=== PATIENT | female | born 1980 | race Caucasian/White ===

== ENCOUNTER → 2016-09-23 | Outpatient (CLI) | payer MEDICARE ==
[2016-09-23 09:11] LABS: Basophils % (A) 0 %; CH 28.1; CHCM 32.1; Eosinophils # (A) 0.1 k/uL (0-0.7); Eosinophils % (A) 3 %; HCT 38.5 % (34.0-46.0); HDW 2.59; HGB 12.5 gm/dL (11.4-16.0); Hypochromasia Slight; Luc # (Auto) 0.17; Luc % (Auto) 4; Lymphocytes % (A) 22 %; MCH 28.4 pg (25.0-35.0); MCHC 32.3 g/dL (31.0-37.0); MCV 87.8 fL (80.0-100.0); Mean Platelet Volume 7.8; Monocytes # (A) 0.3 k/uL (0-1.0); Monocytes % (A) 7 %; Neutrophils # (A) 2.8 k/uL (1.3-7.7); Neutrophils % (A) 65 %; RBC 4.39 m/uL (3.80-5.40); RDW 14.7 % (11.5-15.5); WBC 4.4 k/uL (3.8-10.6); WBC (Perox) 4.72
[2016-09-23 09:18] LABS: Appearance,Urine Cloudy (Clear); Bacteria,Urine Rare /hpf; Bilirubin,Urine Negative (Negative); Glucose,Urine (UA) Negative (Negative); Ketones,Urine Negative (Negative); Leukocyte Esterase,Urine Moderate (Negative); Mucus,Urine Rare /hpf; Nitrite,Urine Negative (Negative); PH, Urine 5.5 (5.0-8.0); Particle Count 6669; Protein,Urine Negative (Negative); Specific Gravity,Urine 1.015 (1.001-1.035); Squamous Epithelial Cell,Urine 15 /hpf (0-4); UA Billing (MACRO vs. MICRO) MICRO; Urobilinogen,Urine <2.0 mg/dL (<2.0); WBC,Urine 2 /hpf (0-5)
[2016-09-23 10:13] LABS: ALT 29 U/L (9-52); AST 22 U/L (14-36); Alkaline Phosphatase 48 U/L (38-126); Anion Gap 9 mmol/L; Blood Urea Nitrogen 10 mg/dL (7-17); Calcium 8.5 mg/dL (8.4-10.2); Carbon Dioxide 25 mmol/L (22-30); Chloride 108 mmol/L (98-107); Cholesterol 154 mg/dL (<200); Glucose 95 mg/dL (74-99); HDL Cholesterol 48 mg/dL (40-60); Iron 41 ug/dL (37-170); Magnesium 1.7 mg/dL (1.6-2.3); Non-African American GFR(MDRD) >60 (>60 ml/min/1.73 sqM); Phosphorous 3.5 mg/dL (2.5-4.5); Potassium 4.2 mmol/L (3.5-5.1); Sodium 142 mmol/L (137-145); Total Bilirubin 0.4 mg/dL (0.2-1.3); Total Protein 6.6 g/dL (6.3-8.2); Triglycerides 99 mg/dL (<150); Uric Acid 5.7 mg/dL (3.7-7.4)
[2016-09-23 10:25] LABS: % Iron Saturation 11.9 % (20-50); Total Iron Binding Capacity 345 ug/dL (265-497)
== END | disposition home or self-care (01) ==
LOC: LABWHC1 08:10
PROVIDERS: ATTEND Internal Medicine Nephrology
DX: Z01.419 Encounter for gynecological examination (general) (routine) without abnormal findings (principal); D50.9 Iron deficiency anemia, unspecified; I10 Essential (primary) hypertension; D64.9 Anemia, unspecified; N25.81 Secondary hyperparathyroidism of renal origin; E55.9 Vitamin D deficiency, unspecified; M10.9 Gout, unspecified; N39.0 Urinary tract infection, site not specified; E89.0 Postprocedural hypothyroidism; Z13.220 Encounter for screening for lipoid disorders
CPT/HCPCS: 36415; 80053; 80061; 81001; 82306; 82728; 83540; 83550; 83735; 83970; 84100; 84439; 84443; 84550; 85025

== ENCOUNTER 2016-10-08 09:31 | Emergency (ER) | payer MEDICARE ==
[2016-10-08] MEDS ORDERED: METOCLOPRAMIDE 5 MG/ML 2 ML VIAL IVP STA (10:43)
[2016-10-08] MEDS ORDERED: diphenhydrAMINE 50 MG/ML 1 ML VIAL IVP STA (10:43)
[2016-10-08] MEDS ORDERED: SODIUM CHLORIDE 0.9% 1,000 ML IV ONE (10:43)
[2016-10-08] MEDS ORDERED: KETOROLAC 30 MG/ML 1 ML VIAL IVP STA (10:43)
[2016-10-08 11:39] LABS: Basophils % (A) 0 %; CHCM 32.8; Eosinophils # (A) 0.2 k/uL (0-0.7); Eosinophils % (A) 4 %; HDW 2.83; HGB 12.6 gm/dL (11.4-16.0); Luc # (Auto) 0.16; Luc % (Auto) 3; Lymphocytes # (A) 1.2 k/uL (1.0-4.8); Lymphocytes % (A) 22 %; MCH 28.5 pg (25.0-35.0); MCHC 33.1 g/dL (31.0-37.0); Mean Platelet Volume 7.8; Monocytes # (A) 0.3 k/uL (0-1.0); Monocytes % (A) 6 %; Neutrophils # (A) 3.6 k/uL (1.3-7.7); Neutrophils % (A) 66 %; RBC 4.41 m/uL (3.80-5.40); RDW 14.5 % (11.5-15.5); WBC 5.5 k/uL (3.8-10.6); WBC (Perox) 5.49
[2016-10-08 11:49] LABS: Anion Gap 10 mmol/L; Blood Urea Nitrogen 4 mg/dL (7-17); Carbon Dioxide 26 mmol/L (22-30); Chloride 105 mmol/L (98-107); Glucose 85 mg/dL (74-99); Non-African American GFR(MDRD) >60 (>60 ml/min/1.73 sqM); Potassium 3.7 mmol/L (3.5-5.1); Sodium 141 mmol/L (137-145)
--- NOTE | 2016-10-08 11:57 | CT ---
EXAMINATION TYPE: CT brain wo con DATE OF EXAM: 10/08/2016 11:47 AM COMPARISON: NONE HISTORY: 36-year-old female complains of intractable headache. TECHNIQUE: Examination was done in axial plane without intravenous contrast. Coronal and sagittal r econstructions performed. CT DLP: 744 mGycm Automated exposure control for dose reduction was used. FINDINGS: Postsurgical changes with resection along the left mastoid process with a left-sided cochlear implant there are prominent streak and beam hardening artifact from the electrical device along the left pos terior calvarium limiting evaluation. Within this limitation, there is no evidence of acute intracranial hemorrhage, acute ischemic piper es, mass, mass-effect, or extra-axial fluid collection. There is no effacement of cerebral sulci or basal subarachnoid cisterns. There is no hydrocephalus. There is no midline shift. Davis-white yarely er distinction is preserved. Empty sella incidentally noted. Patient's gaze is slightly divergent. The right mastoid air cells are well pneumatized. Prior FESS. IMPRESSION: 1. Prominent artifacts from the patient's cochlear implant on the left side. No acute intracranial ab normality seen allowing for limitations from this metal artifact. 2. Empty sella incidentally noted. 3. Slightly divergent gaze suggests underlying strabismus.
--- NOTE | 2016-10-08 12:16 | ED ---
General Adult HPI - General Chief complaint: Headache Stated complaint: MIGRAINE Source: patient Mode of arrival: ambulatory Limitations: no limitations - History of Present Illness Initial comments: 36-year-old female with a past medical history of migraines presented for evaluation of headache for the last 2 weeks of gradual onset that has progressively worsened. She saw Dr. Chen her primary care physician and was prescribed an antibiotic for sinus infection. She states her symptoms did not improve at all and she went to [facility] yesterday and was given a shot of Toradol without any relief. She says she takes Maxalt as needed for her migraines but has had no improvement with that. She states that her headache is located on the right side of her her head. It is similar to previous headaches but worse. She denies any change in vision, ataxia, lightheadedness/ dizziness, nausea, vomiting, fevers, chills, neck rigidity. - Related Data Home Medications Medication Instructions Recorded Confirmed Amoxicillin/Potassium Clav 1 tab PO Q12HR 10/08/16 10/08/16 [Augmentin 875-125 Tablet] LORazepam [Ativan] 1 mg PO DAILY 10/08/16 10/08/16 Levothyroxine Sodium [Synthroid] 50 mcg PO DAILY 10/08/16 10/08/16 Lisinopril [Zestril] 5 mg PO DAILY 10/08/16 10/08/16 QUEtiapine FUMARATE [SEROquel XR] 50 mg PO HS 10/08/16 10/08/16 Rizatriptan Benzoate [Maxalt] 10 mg PO DAILY 10/08/16 10/08/16 lamoTRIgine [LaMICtal] 200 mg PO DAILY 10/08/16 10/08/16 Previous Rx's Medication Instructions Recorded Ibuprofen [Motrin] 800 mg PO Q8HR PRN #20 tab 10/08/16 Allergies Allergy/AdvReac Type Severity Reaction Status Date / Time amoxicillin Allergy Nausea Verified 10/08/16 10:12 Review of Systems ROS Statement: Those systems with pertinent positive or pertinent negative responses have been documented in the HPI. ROS Other: All systems not noted in ROS Statement are negative. Constitutional: Denies: fever, chills, weakness, weight change Eyes: Denies: eye pain, eye discharge, vision change ENT: Denies: ear pain, throat pain, hearing loss, epistaxis Respiratory: Denies: cough, dyspnea, wheezes, hemoptysis Cardiovascular: Denies: chest pain, palpitations, dyspnea on exertion, orthopnea Gastrointestinal: Denies: abdominal pain, nausea, vomiting, constipation, hematemesis Genitourinary: Denies: urgency, dysuria Musculoskeletal: Denies: back pain, arthralgia, myalgia Skin: Denies: rash, lesions, change in color, change in hair/nails Neurological: Reports: headache. Denies: weakness, numbness, paresthesias, confusion Psychiatric: Denies: anxiety, depression Hematological/Lymphatic: Denies: easy bleeding, easy bruising Past Medical History Past Medical History: Thyroid Disorder Additional Past Medical History / Comment(s): heart murmur, guajardo syndrome, kidney problems, hearing impaired, OCD History of Any Multi-Drug Resistant Organisms: None Reported Past Surgical History: Tubal Ligation Additional Past Surgical History / Comment(s): ear surgery, thyroid surgery Past Psychological History: Bipolar Smoking Status: Former smoker Past Alcohol Use History: Rare Past Drug Use History: None Reported General Exam Limitations: no limitations General appearance: alert, in no apparent distress Head exam: Present: atraumatic, normocephalic, normal inspection Eye exam: Present: normal appearance, PERRL, EOMI. Absent: scleral icterus, conjunctival injection, periorbital swelling ENT exam: Present: normal oropharynx, mucous membranes moist, other (Patient has cochlear implants) Neck exam: Present: normal inspection, full ROM. Absent: tenderness, meningismus, lymphadenopathy Respiratory exam: Present: normal lung sounds bilaterally. Absent: respiratory distress, wheezes, rales, rhonchi, stridor Cardiovascular Exam: Present: regular rate, normal rhythm, normal heart sounds. Absent: systolic murmur, diastolic murmur, rubs, gallop, clicks GI/Abdominal exam: Present: soft, normal bowel sounds. Absent: distended, tenderness, guarding, rebound, rigid Rectal exam: Present: deferred Extremities exam: Present: normal inspection, full ROM, normal capillary refill. Absent: tenderness, pedal edema, joint swelling, calf tenderness Back exam: Present: normal inspection Neurological exam: Present: alert, oriented X3, CN II-XII intact, normal gait. Absent: altered, motor sensory deficit (No focal neurologic deficits) Psychiatric exam: Present: normal affect, normal mood Skin exam: Present: warm, dry, intact, normal color. Absent: rash Course Vital Signs 10/08/16 10/08/16 09:35 13:03 Temperature 97.9 F 98.2 F Pulse Rate 78 74 Respiratory 17 16 Rate Blood Pressure 141/79 148/70 O2 Sat by Pulse 97 96 Oximetry EKG Findings - EKG Comments: EKG Findings:: Normal sinus rhythm with prolonged QT at 456 and a QTC of 495 Medical Decision Making - Medical Decision Making 36-year-old female with a past medical history of migraines presented for evaluation of right-sided headache that is similar to previous migraines but nonresponsive to traditional therapies. She denies any other associated symptoms. On physical examination she has a normal neurologic exam cranial nerves II through XII intact with no focal neurologic deficits. Patient does have mildly abnormal speech due to being deaf although she does have cochlear implants now. Patient has normal gait and station and ambulates without ataxia. Although this is similar to previous headaches/migraines the length of her symptoms are concerning and will obtain a CT head. We'll also obtain labs and provide pain control. Labs revealed no significant abnormalities and the computed tomography scan showed no acute abnormalities. The patient was reevaluated and stated a marked improvement in her headache. Given the continued presence of the headache although decreased she was offered a lumbar puncture for rule out of both pseudotumor cerebri as well as subarachnoid hemorrhage. The patient adamantly refused stating that she would not like to have a lumbar puncture at this time. She was informed of the indications as well as the possible outcomes of refusing up to and including . She was advised to follow-up with her primary care physician within 24 hours and that she would be giving a consult for neurologist. Her primary care physician was subsequently called and Dr. Chen stated that he would see her tomorrow. She was informed of this conversation, acknowledged an understanding of this information, and agreed with this plan of care. - Lab Data Result diagrams: 10/08/16 11:26 10/08/16 11:26 Lab Results 10/08/16 10/08/16 Range/Units 11:26 11:26 WBC 5.5 (3.8-10.6) k/uL RBC 4.41 (3.80-5.40) m/uL Hgb 12.6 (11.4-16.0) gm/dL Hct 38.0 (34.0-46.0) % MCV 86.0 (80.0-100.0) fL MCH 28.5 (25.0-35.0) pg MCHC 33.1 (31.0-37.0) g/dL RDW 14.5 (11.5-15.5) % Plt Count 221 (150-450) k/uL Neutrophils % 66 % Lymphocytes % 22 % Monocytes % 6 % Eosinophils % 4 % Basophils % 0 % Neutrophils # 3.6 (1.3-7.7) k/uL Lymphocytes # 1.2 (1.0-4.8) k/uL Monocytes # 0.3 (0-1.0) k/uL Eosinophils # 0.2 (0-0.7) k/uL Basophils # 0.0 (0-0.2) k/uL Sodium 141 (137-145) mmol/L Potassium 3.7 (3.5-5.1) mmol/L Chloride 105 (98-107) mmol/L Carbon Dioxide 26 (22-30) mmol/L Anion Gap 10 mmol/L BUN 4 L (7-17) mg/dL Creatinine 0.70 (0.52-1.04) mg/dL Est GFR (MDRD) Af Amer >60 (>60 ml/min/1.73 sqM) Est GFR (MDRD) Non-Af >60 (>60 ml/min/1.73 sqM) Glucose 85 (74-99) mg/dL Calcium 8.0 L (8.4-10.2) mg/dL Disposition Clinical Impression: Headache Disposition: HOME SELF-CARE Condition: Stable Additional Instructions: Please use medication as discussed. Please follow up with family doctor if symptoms have not improved over the next two days. Please return to the emergency room if your symptoms increase or worsen or for any other concerns. Prescriptions: Ibuprofen [Motrin] 800 mg PO Q8HR PRN #20 tab PRN Reason: Analgesia Referrals: Agustin Chen III, MD [Primary Care Provider] - 1-2 days Time of Disposition: 12:27
[2016-10-08 13:05] VITALS: BP 148/70; PULSE 74; RESP 16; TEMP 98.2
== END 2016-10-08 13:03 | disposition home or self-care (01) ==
LOC: EC 09:31
DX: G43.909 Migraine, unspecified, not intractable, without status migrainosus (principal); E07.9 Disorder of thyroid, unspecified; F31.9 Bipolar disorder, unspecified; H91.92 Unspecified hearing loss, left ear; Z88.0 Allergy status to penicillin; Z87.891 Personal history of nicotine dependence; Z79.899 Other long term (current) drug therapy; Z96.21 Cochlear implant status
CPT/HCPCS: 96375 ×3; 96361 ×3; 96374 ×2; 99284 ×2; 36415; 93005; 80048; 85025; 70450; J1200; J2765; J1885

== ENCOUNTER 2017-05-20 10:11 | Emergency (ER) | payer OTHER, MEDICARE ==
[2017-05-20] MEDS ORDERED: traMADol 50 MG TAB PO STA (10:45)
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
[2017-05-20 13:18] VITALS: BP 127/83; PULSE 87; RESP 18; TEMP 98.9
== END 2017-05-20 13:18 | disposition home or self-care (01) ==
LOC: EC 10:11
DX: S16.1XXA Strain of muscle, fascia and tendon at neck level, initial encounter (principal); R51 Headache; E07.9 Disorder of thyroid, unspecified; F31.9 Bipolar disorder, unspecified; Z87.891 Personal history of nicotine dependence; Z79.899 Other long term (current) drug therapy; Z88.0 Allergy status to penicillin; V43.52XA Car driver injured in collision with other type car in traffic accident, initial encounter; Y92.410 Unspecified street and highway as the place of occurrence of the external cause
CPT/HCPCS: 70450; 72125; 99284

== ENCOUNTER 2017-07-21 06:52 | Emergency (ER) | payer OTHER, MEDICARE ==
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
[2017-07-21 09:16] VITALS: BP 132/78; PULSE 69; RESP 16; TEMP 97.7
== END 2017-07-21 09:00 | disposition home or self-care (01) ==
LOC: EC 06:52
DX: M54.2 Cervicalgia (principal); E07.9 Disorder of thyroid, unspecified; F31.9 Bipolar disorder, unspecified; Z87.891 Personal history of nicotine dependence; Z79.899 Other long term (current) drug therapy; Z88.0 Allergy status to penicillin
CPT/HCPCS: 99283

== ENCOUNTER 2020-09-25 14:40 | Emergency (ER) | payer MEDICARE ==
[2020-09-25 14:47] VITALS: BP 145/74; PULSE 90; RESP 20; TEMP 98.7
--- NOTE | 2020-09-25 15:17 | ED ---
Recheck HPI - General Chief Complaint: Recheck/Abnormal Lab/Rx Stated Complaint: Covid swab Time Seen by Provider: 09/25/20 14:48 Source: patient, family Mode of arrival: ambulatory Limitations: no limitations - History of Present Illness Initial Comments: Patient is a 40-year-old female, hard of hearing, presenting to the emergency department requesting Covid testing. Patient states she works at a half-[employer] and was told that she may have been exposed. She states she did finish her second Covid vaccine a couple weeks ago. She currently has no symptoms, she just wants to be tested to make sure she can go back to work. She denies any fever or chills, no chest pain or shortness of breath. She has no further complaints at this time. Upon arrival to the ER, her vital signs are stable. - Related Data Home Medications Medication Instructions Recorded Confirmed LORazepam [Ativan] 1 mg PO DAILY 10/08/16 07/21/17 Levothyroxine Sodium [Synthroid] 50 mcg PO DAILY 10/08/16 07/21/17 QUEtiapine FUMARATE [SEROquel XR] 50 mg PO HS 10/08/16 07/21/17 Rizatriptan Benzoate [Maxalt] 10 mg PO DAILY PRN 10/08/16 07/21/17 lamoTRIgine [LaMICtal] 200 mg PO DAILY 10/08/16 07/21/17 lisinopriL [Zestril] 5 mg PO DAILY 10/08/16 07/21/17 Cyclobenzaprine [Flexeril] 10 mg PO TID PRN 07/21/17 07/21/17 Previous Rx's Medication Instructions Recorded Ibuprofen [Motrin] 800 mg PO Q8HR PRN #20 tab 10/08/16 traMADol HCl [Ultram] 50 - 100 mg PO Q6H PRN #20 tab 05/20/17 dexAMETHasone [Dexamethasone] 0.75 mg PO DIRECTED #12 tablet 07/21/17 Allergies Allergy/AdvReac Type Severity Reaction Status Date / Time Penicillins Allergy Rash/Hives Verified 09/25/20 14:47 amoxicillin AdvReac Rash/Hives Verified 09/25/20 14:47 Review of Systems ROS Statement: Those systems with pertinent positive or pertinent negative responses have been documented in the HPI. ROS Other: All systems not noted in ROS Statement are negative. Past Medical History Past Medical History: Thyroid Disorder Additional Past Medical History / Comment(s): heart murmur, guajardo syndrome, kidney problems, hearing impaired, OCD, History of Any Multi-Drug Resistant Organisms: None Reported Past Surgical History: Tubal Ligation Additional Past Surgical History / Comment(s): ear surgery, thyroid surgery, Past Psychological History: Bipolar Smoking Status: Never smoker Past Alcohol Use History: Rare Past Drug Use History: None Reported General Exam - General Exam Comments Initial Comments: GENERAL: Patient is well-developed and well-nourished. Patient is nontoxic and in no acute distress. HEAD: Atraumatic, normocephalic. EYES: Pupils equal round and reactive to light, extraocular movements intact, sclera anicteric, conjunctiva are normal. Eyelids were unremarkable. ENT: TMs normal, nares patent, oropharynx clear without exudates. Moist mucous membranes. NECK: Normal range of motion, supple without lymphadenopathy or JVD. LUNGS: Unlabored respirations. Breath sounds clear to auscultation bilaterally and equal. No wheezes rales or rhonchi. HEART: Regular rate and rhythm without murmurs, rubs or gallops. ABDOMEN: Soft, nontender, normoactive bowel sounds. No guarding, no rebound. No masses appreciated. : Deferred MUSCULOSKELETAL: Normal extremities with adequate strength and normal range of motion, no pitting or edema. No clubbing or cyanosis. NEUROLOGICAL: Patient is alert and oriented x 3. Motor and sensory are also intact. Cranial nerves II through XII grossly intact. Symmetrical smile. Normal speech, normal gait. PSYCH: Normal mood, normal affect. SKIN: Warm, Dry, normal turgor, no rashes or lesions noted. Limitations: no limitations Course Vital Signs 09/25/20 14:45 Temperature 98.7 F Pulse Rate 90 Respiratory 20 Rate Blood Pressure 145/74 O2 Sat by Pulse 98 Oximetry Medical Decision Making - Medical Decision Making Patient is a 40-year-old female presenting for Covid testing. She may have been exposed at work and wants clearance to go back to work. She is asymptomatic, her exam is unremarkable, vital signs normal. Patient's rapid Covid test is negative. Patient is stable for discharge. Patient is in agreement with this plan of care. Return parameters were discussed with the patient and they verbalized understanding. Case discussed with Dr. Mejia. - Lab Data Lab Results 09/25/20 Range/Units 14:57 Coronavirus (PCR) Not Detected (Not Detectd) Disposition Clinical Impression: Exposure to COVID-19 virus Disposition: HOME SELF-CARE Condition: Stable Instructions (If sedation given, give patient instructions): Normal Exam (ED) Additional Instructions: Please return to the Emergency Department if symptoms worsen or any other concerns. Rapid Covid test is negative. Is patient prescribed a controlled substance at d/c from ED?: No Referrals: Catia Mendez MD [Primary Care Provider] - 1-2 days
== END 2020-09-25 16:05 | disposition home or self-care (01) ==
LOC: EC 14:40
DX: Z20.822 Contact with and (suspected) exposure to COVID-19 (principal); E07.9 Disorder of thyroid, unspecified; F31.9 Bipolar disorder, unspecified; Z79.890 Hormone replacement therapy; Z79.899 Other long term (current) drug therapy; Z88.0 Allergy status to penicillin
CPT/HCPCS: 87635; 99283

== ENCOUNTER 2023-04-18 15:26 | Emergency (ER) | payer MEDICARE, OTHER ==
[2023-04-18 15:45] VITALS: TEMP 98.2
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
[2023-04-18 17:23] VITALS: BP 139/81; PULSE 80; RESP 18
== END 2023-04-18 17:20 | disposition home or self-care (01) ==
LOC: EC 15:26
DX: S52.591A Other fractures of lower end of right radius, initial encounter for closed fracture (principal); E07.9 Disorder of thyroid, unspecified; Z79.890 Hormone replacement therapy; Z86.59 Personal history of other mental and behavioral disorders; Z88.0 Allergy status to penicillin; Z88.8 Allergy status to other drugs, medicaments and biological substances; V89.2XXA Person injured in unspecified motor-vehicle accident, traffic, initial encounter; Y92.411 Interstate highway as the place of occurrence of the external cause
CPT/HCPCS: 29125; 99284

== ENCOUNTER → 2023-12-10 | Outpatient (CLI) | payer MEDICARE ==
--- NOTE | 2023-12-10 09:12 | US ---
EXAMINATION TYPE: US transvaginal DATE OF EXAM: 12/10/2023 COMPARISON: NONE CLINICAL INDICATION: Female, 43 years old with history of N93.9 ABNORMAL UTERINE AND VAGINAL BLEEDING , UNSPE; Pt states she has been bleeding x 1 month straight. No cramping. G0. TECHNIQUE: Transvaginal (TV). Date of LMP: Beginning of November EXAM MEASUREMENTS: Uterus: 7.8 x 4.4 x 3.7 cm Endometrial Stripe: 0.8 cm Right Ovary: 3.7 x 2.5 x 2.5 cm Left Ovary: 3.9 x 2.6 x 2.7 cm 1. Uterus: Anteverted Heterogeneous and difficult to visualize the fundus. Hypoechoic area seen me asuring 2.0 x 1.5 x 1.5cm. Complex area seen in cervix with vascularity measuring 1.3 x 0.9 x 0.6cm 2. Endometrium: Not well visualized 3. Right Ovary: Multiple cystic areas seen. Largest has a septation seen measuring 2.1 x 2.7 x 1.5cm 4. Left Ovary: Cystic area seen measuring 3.1 x 2.7 x 2.7cm 5. Bilateral Adnexa: wnl 6. Posterior cul-de-sac: wnl IMPRESSION: 1. Complex area in the cervix of vascularity. Direct visualization recommended. 2. Multiple dominant right ovarian follicles measuring up to 2.5 cm. 3. Left ovarian cyst measuring up to 3.1 cm.
== END | disposition home or self-care (01) ==
LOC: RADUSWWP 07:56
PROVIDERS: ATTEND Family Medicine
DX: N83.202 Unspecified ovarian cyst, left side (principal); N83.01 Follicular cyst of right ovary; N93.9 Abnormal uterine and vaginal bleeding, unspecified
CPT/HCPCS: 76830